=== PATIENT | female | born 1945 | race Caucasian/White ===

== ENCOUNTER 2016-06-24 18:00 | Emergency (ER) | payer OTHER, BC ==
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
--- NOTE | 2016-06-24 19:15 | ED ORDER SUMMARY ---
..... Patient: FAITH LYMAN OrderSheet [facility] VisitID: [id number] [address] [place] [address] 70y, F Registration Date/Time: 06/24/2016 ORDER SHEET Weight: 131.5 kg (stated) Allergies: No Known Drug Allergy GENERAL ORDERS: Dress Wounds (19:14 06/24/2016 HBivens A.R.N.P.) (19:17 TBowen R.N.) MEDICATION ORDERS: Lidocaine Injection 1% plain (NOW) (18:38 06/24/2016 HBivens A.R.N.P.) (18:40 MWinterer R.N.) Tdap IM 0.5 mL (NOW, per protocol) (19:21 06/24/2016 HBivens A.R.N.P.) (19:26 TBowen R.N.) IV FLUIDS: ORDER SHEET NOTES: [Electronically signed by Naheed Novak R.N. (19:35 06/24/2016)] [Electronically signed by Ramonita HiltonR.N.PBebe (22:02 06/24/2016)] [Electronically locked/signed by Naheed Novak R.N. (19:35 06/24/2016)]
--- NOTE | 2016-06-24 19:15 | ED ORDER SUMMARY ---
..... Patient: FAITH LYMAN OrderSheet VisitID: [id number] [address] [place] [address] 70y, F Registration Date/Time: 06/24/2016 ORDER SHEET Weight: 131.5 kg (stated) Allergies: No Known Drug Allergy GENERAL ORDERS: Dress Wounds (19:14 06/24/2016 HBivens A.R.N.P.) (19:17 TBowen R.N.) MEDICATION ORDERS: Lidocaine Injection 1% plain (NOW) (18:38 06/24/2016 HBivens A.R.N.P.) (18:40 MWinterer R.N.) Tdap IM 0.5 mL (NOW, per protocol) (19:21 06/24/2016 HBivens A.R.N.P.) (19:26 TBowen R.N.) IV FLUIDS: ORDER SHEET NOTES: [Electronically signed by Naheed Novak R.N. (19:35 06/24/2016)] [Electronically signed by Ramonita HiltonR.N.PBebe (22:02 06/24/2016)] [Electronically locked/signed by Naheed Novak R.N. (19:35 06/24/2016)]
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
--- NOTE | 2016-06-24 22:03 | ED MED RECONCILIATION SUMMARY ---
Patient: FAITH LYMAN Medication Reconciliation Report [facility] VisitID: [id number] [address] [place] [address] 70y, F Registration Date/Time: 06/24/2016 Weight: 131.5 kg Height/Length: 66 in. BMI: 46.8 ALLERGIES: No Known Drug Allergy The patient's Home Medications are listed below: THE FOLLOWING MEDICATIONS NEED TO BE RECONCILED: Furosemide Oral Metoprolol Succinate ER Oral Percocet Oral The source(s) of the original Home Medication information: patient The following Medications were given to the patient in the Emergency Department: Lidocaine [Injection] Injection 1 %, administered: 06/24/2016 6:40:00 PM TDAP [IM] IM 0.5 mL, administered: 06/24/2016 7:26:00 PM The following Medications were prescribed to the patient: Ultram 50 mg tablets: take 1-2 orally every 6 hours as needed for pain. Dispense twenty (20). No refills. Substitution is permissible. -- Ramonita Hilton A.R.N.P.
--- NOTE | 2016-06-24 22:03 | ED MAR SUMMARY ---
..... Medication Administration Record [facility] [address] [address] Patient: FAITH LYMAN Visit ID: [id number] 70y, F Weight: 131.5 kg Height/Length: 66 in BMI: 46.8 ALLERGIES: No Known Drug Allergy Given 18:40 06/24/2016 Padmini Mckeon R.N. Medication Administered: LIDOCAINE [INJECTION], Dose: 1 % Injection. Medication Ordered: Lidocaine Injection 1% plain (NOW). Given 19:26 06/24/2016 Lyssa RJodi Medication Administered: TDAP [IM], Dose: 0.5 mL IM. Medication Ordered: Tdap IM 0.5 mL (NOW, per protocol).
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
--- NOTE | 2016-06-24 22:03 | ED MAR SUMMARY ---
..... Medication Administration Record [facility] [address] [place] [address] Patient: FAITH LYMAN Visit ID: [id number] 70y, F Weight: 131.5 kg Height/Length: 66 in BMI: 46.8 ALLERGIES: No Known Drug Allergy Given 18:40 06/24/2016 Padmini Mckeon R.N. Medication Administered: LIDOCAINE [INJECTION], Dose: 1 % Injection. Medication Ordered: Lidocaine Injection 1% plain (NOW). Given 19:26 06/24/2016 Lyssa RJodi Medication Administered: TDAP [IM], Dose: 0.5 mL IM. Medication Ordered: Tdap IM 0.5 mL (NOW, per protocol).
--- NOTE | 2016-06-24 22:03 | ED MED RECONCILIATION SUMMARY ---
Patient: FAITH LYMAN Medication Reconciliation Report [facility] VisitID: [id number] [address] [place] [address] 70y, F Registration Date/Time: 06/24/2016 Weight: 131.5 kg Height/Length: 66 in. BMI: 46.8 ALLERGIES: No Known Drug Allergy The patient's Home Medications are listed below: THE FOLLOWING MEDICATIONS NEED TO BE RECONCILED: Furosemide Oral Metoprolol Succinate ER Oral Percocet Oral The source(s) of the original Home Medication information: patient The following Medications were given to the patient in the Emergency Department: Lidocaine [Injection] Injection 1 %, administered: 06/24/2016 6:40:00 PM TDAP [IM] IM 0.5 mL, administered: 06/24/2016 7:26:00 PM The following Medications were prescribed to the patient: Ultram 50 mg tablets: take 1-2 orally every 6 hours as needed for pain. Dispense twenty (20). No refills. Substitution is permissible. -- Ramonita Hilton A.R.N.P.
== END 2016-06-24 19:30 | disposition home or self-care (01) ==
LOC: ED SRH 18:00
DX: S81.812A Laceration without foreign body, left lower leg, initial encounter (principal); W26.8XXA Contact with other sharp object(s), not elsewhere classified, initial encounter; Y92.89 Other specified places as the place of occurrence of the external cause; Y99.8 Other external cause status; Z23 Encounter for immunization